=== PATIENT | female | born 1965 | race African-American/Black ===

== ENCOUNTER 2020-11-13 11:04 | Emergency (ER) | payer OTHER, SELFPAY ==
[2020-11-13 11:32] VITALS: BP 117/77; PULSE 87; RESP 20; TEMP 38.8; O2SAT 99
--- NOTE | 2020-11-13 11:47 | ED.GENADULT ---
HPI - General Adult General Chief complaint: Upper Respiratory Infection Stated complaint: chills aches cough Time Seen by Provider: 11/13/20 11:47 Source: patient and RN notes reviewed Mode of arrival: ambulatory Limitations: no limitations History of Present Illness HPI narrative: 55-year-old -[place] female presents with complaints of upper respiratory infection symptoms, cough, chills, and body aches for the past 2 days. Cristina reports increase symptoms over the past 24 hours with increase chills with sweats, congestion, body aches, and cough. Tylenol, last 11/12/20 with little relief. Dry cough without chest congestion. Rhinorrhea and nasal congestion. Exacerbating factors consist of chills and sweats. Unknown if high fevers (no thermometer) with intermittent chills and sweats. No nausea, vomiting, and abdominal pain. Tolerating po intake well. Denies chest pain, coughing up blood, jaw pain, dental pain, facial pain, foreign body sensation, and rash. The patient reports she have not been diagnosed with COVID-19. The patient reports she is not waiting for the results of a COVID-19 lab test. The patient reports she do not have weakness or fatigue. The patient reports she do not have a worsening cough. Denies chest pain. The patient reports he do not have any loss of smell or taste or diarrhea. Denies recent traveling. Denies concerns for COVID-19 or exposures been home with limited outdoor exposure except for essential household needs, work, and return home. At this time, patient is suspected of having COVID-19. Some parts of this dictation were generated by voice recognition software and may contain typographical and/or grammatical inaccuracies. Related Data Home Medications Medication Instructions Recorded Confirmed cholecalciferol (vitamin D3) 1,000 unit PO DAILY 11/13/20 11/13/20 [Vitamin D3] enalapril maleate 20 mg PO DAILY 11/13/20 11/13/20 simvastatin 40 mg PO DAILY 11/13/20 11/13/20 venlafaxine 75 mg PO DAILY 11/13/20 11/13/20 Allergies Allergy/AdvReac Type Severity Reaction Status Date / Time No Known Allergies Allergy Verified 11/13/20 11:18 Review of Systems Review of Systems: Narrative: CONSTITUTIONAL: Complains of chills, sweats. Denies fever. EYES: Denies visual changes, redness, discharge. ENT: Complains of rhinorrhea, congestion. Denies otalgia, sore throat. CARDIOVASCULAR: Denies chest pain, palpitations, edema. RESPIRATORY: Denies wheezing, dyspnea. Complains of dry cough. GASTROINTESTINAL: Denies abdominal pain, nausea, vomiting, diarrhea. GENITOURINARY: Denies dysuria, hematuria, abnormal discharge. SKIN: Denies rash or itching. MUSCULOSKELETAL: Denies acute back pain, joint pain. Complains of myalgia. NEUROLOGIC: Denies numbness or focal weakness. PSYCHIATRIC: Denies anxiety or depression. All systems reviewed & are unremarkable except as noted in HPI and below PMFSH Past Medical History Medical History (Updated 11/14/20 @ 18:03 by DAVION Gonzalez) Anxiety Depression Hypercholesteremia Hypertension Scoliosis Surgical History Surgical History (Updated 11/13/20 @ 12:10 by DAVION Gonzalez) No significant past surgical history Family History Family History (Updated 11/13/20 @ 12:11 by DAVION Gonzalez) Father , Murdered Medical history unknown Mother , Cancer unknown Cancer Social History Social History (Updated 11/13/20 @ 12:11 by DAVION Gonzalez) Smoking status: Never smoker Tobacco type: cigarettes Second hand tobacco smoke exposure: No Alcohol intake: never Substance use: current Substance use type: marijuana Living arrangements: alone Occupation/Education: occupation Gender identity (if verbalized by the patient): Female Sexual Orientation (if Verbalized by the Patient): Straight or Heterosexual Comments At time of signature, agree with nurse past medical, surgical, social, and
[2020-11-13 11:55] VITALS: TEMP 38.8
[2020-11-13] MEDS: IBUPROFEN 400 MG TABLET 800 MG PO (11:55)
[2020-11-13 12:10] VITALS: TEMP 38.5
== END 2020-11-13 12:10 | disposition home or self-care (01) ==
PROVIDERS: Emergency Provider Nurse Practitioner Family; PCP Nurse Practitioner Adult Health
DX: E78.00 Pure hypercholesterolemia, unspecified (principal); I10 Essential (primary) hypertension; M41.9 Scoliosis, unspecified; F41.9 Anxiety disorder, unspecified; F32.9 Major depressive disorder, single episode, unspecified
CPT/HCPCS: 87426; 87804; 99213; A9270; C9803; G0463